=== PATIENT | female | born 1940 | race Caucasian/White ===

== ENCOUNTER 2018-03-20 13:49 | Observation (INO) | payer MEDICARE, BC ==
[2018-03-20] MEDS ORDERED: Famotidine 20 MG/2 ML SDV IVPUSH ONE (13:57)
--- NOTE | 2018-03-20 13:57 | EDM.PDOC ---
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 Medical Record [OM.PC] Urgent Peripheral IV Insertion Adult [OM.PC] Stat Resuscitation Status Stat 03/20/18 Breakfast Nothing per Oral Now Diet [DIET] - Assessment/Plan Admission H&P: Please use this note as an admission H&P Last 24 Hours: My Active Orders 03/20/18 13:57 Cardiac Monitoring [RC] . DIRECTED EKG Documentation Completion [RC] ASDIRECTED Oxygen Therapy, ED [RC] CONTINUOUS Peripheral IV Care [RC] . DIRECTED Pulse Oximetry [RC] CONTINUOUS Up With Assistance [RC] PFP Vital Signs [RC] PFP Chest 1V Frontal [CR] Stat Sodium Chloride 0.9% [Saline Flush] 10 ml FLUSH ASDIRECTED PRN Obtain Past Medical Record [OM.PC] Urgent Peripheral IV Insertion Adult [OM.PC] Stat Resuscitation Status Stat 03/20/18 Breakfast Nothing per Oral Now Diet [DIET] Assessment:: As above Plan: As above. Extensive precautions were given to the patient, who is in agreement with the treatment plan. The patient's condition is stable enough for observation status and general supervision.
[2018-03-20] MEDS: Sodium Chloride 0.9% 10 ML Syringe FLUSH PRN ×2 (14:11→14:46)
[2018-03-20] MEDS ORDERED: Lactated Ringers 1,000 ML IV ONE (14:41)
[2018-03-20 14:57] LABS: CHLORIDE,CL 103 mmol/L (98-107); SODIUM,NA 137 mmol/L (136-145)
[2018-03-20] MEDS ORDERED: Acetaminophen 325 MG Tab PO PRN ×2 (17:24→17:58)
[2018-03-20] MEDS ORDERED: Sodium Chloride 0.9% 10 ML Syringe FLUSH PRN (17:58)
[2018-03-20] MEDS ORDERED: Temazepam 15 MG Cap PO PRN (17:58)
[2018-03-20] MEDS ORDERED: Enoxaparin 40 MG/0.4 ML Syringe SUBCUT SCH (18:00)
[2018-03-20] MEDS ORDERED: Lactated Ringers 1,000 ML IV SCH (18:15)
[2018-03-20] MEDS: Fish Oil/Omega-3 Fatty Acids 1 Gm Cap PO SCH (19:24)
[2018-03-21] MEDS ORDERED: Levothyroxine 50 MCG Tab PO SCH (07:30)
[2018-03-21] MEDS ORDERED: Losartan 50 MG Tab PO SCH (08:00)
[2018-03-21] MEDS ORDERED: Aspirin 81 MG Tab.Chew PO SCH (08:00)
[2018-03-21] MEDS ORDERED: Ibuprofen 200 MG Tab PO SCH (08:00)
[2018-03-21] MEDS: Fish Oil/Omega-3 Fatty Acids 1 Gm Cap PO SCH (08:27)
--- NOTE | 2018-03-21 08:42 | PCM.DCSUM1 ---
Discharge Summary - Hospital Course HPI Initial Comments: See emergency room note/admission H&P Brief History: See emergency room note/admission H&P - Discharge Data Discharge Date: 03/21/18 Discharge Disposition: Home, Self-Care 01 Condition: Good - Discharge Diagnosis/Problem(s) (1) Syncopal episodes SNOMED Code(s): 952011323 ICD Code: R55 - SYNCOPE AND COLLAPSE Status: Acute Priority: High Current Visit: Yes Onset Date: 03/20/18 Problem Details: Negative workup for acute [place] during this hospitalization. Note significant improvement of patient's bradycardia and hypotension with IV fluids and holding of Norvasc. No chest pain or anginal type symptoms during hospitalization. Various therapeutic options were discussed with the patient, who agrees to hold her Norvasc for the time being. Note initial mild BNP elevation likely secondary to bradycardia and hypotension with no true significant clinical CHF and normal BNP this morning. The patient is already on losartan. Close follow-up by regular provider as per discharge instructions. Note history of recurrent syncopal episode as per emergency room note above, including yesterday after blood donation. Further blood donations recommended. No chest pain or other anginal type symptoms prior to arrival to the emergency room with chest pain protocol not initiated in the emergency room. IV bolus of lactated Ringer's given in the emergency room secondary to some persistent hypotension and bradycardia. Note symptoms improved , including prior to arrival to this emergency room. Various therapeutic options were discussed in the emergency room with the patient and her sister. She did agree to admission to observation with standard rule out [place] orders. Echocardiogram recommended on an outpatient basis with further cardiac workup, including possible Cardiolite stress test depending on her clinical course. Cardiology consultation when necessary. Qualifiers: Syncope type: unspecified Qualified Code(s): R55 - Syncope and collapse (2) Hypertension SNOMED Code(s): 36955174 ICD Code: I10 - ESSENTIAL (PRIMARY) HYPERTENSION Status: Acute Priority: High Current Visit: Yes Problem Details: Blood pressures improved prior to discharge although still somewhat low this morning with systolic blood pressures in the 110s. No clinical orthostasis or significant hypotension today. Note recurrent syncope as above. Pressures improved with 1 L lactated Ringer's IV bolus in the emergency room. Qualifiers: Hypertension type: essential hypertension Qualified Code(s): I10 - Essential (primary) hypertension (3) Hyperlipidemia SNOMED Code(s): 71640664 ICD Code: E78.5 - HYPERLIPIDEMIA, UNSPECIFIED Status: Chronic Priority: Medium Current Visit: Yes Problem Details: Not currently under therapy. Lipid panel this morning shows excellent HDL with no further medical therapy required unless patient does develop significant coronary artery disease. Qualifiers: Hyperlipidemia type: unspecified Qualified Code(s): E78.5 - Hyperlipidemia , unspecified (4) Osteoarthritis SNOMED Code(s): 728037083 ICD Code: M19.90 - UNSPECIFIED OSTEOARTHRITIS, UNSPECIFIED SITE Status: Chronic Priority: Medium Current Visit: Yes Problem Details: Stable by history; no recent fall or injury Qualifiers: Osteoarthritis location: multiple joints Osteoarthritis type: primary Qualified Code(s): M15.0 - Primary generalized (osteo)arthritis (5) Bradycardia SNOMED Code(s): 40147155 ICD Code: R00.1 - BRADYCARDIA, UNSPECIFIED Status: Acute Priority: High Current Visit: Yes Onset Date: 03/20/18 Problem Details: Resolved prior to admission as above. Previous Bradycardia likely secondary to medications and/ or a heart disease with bradycardia resolved at time of admission and Norvasc held during this hospitalization as above. (6) Hyperglycemia SNOMED Code(s): 97650519 ICD Code: R73.9 - HYPERGLYCEMIA, UNSPECIFIED Status: Acute Priority: High Current Visit: Yes Onset Date: 03/20/18 Problem Details: Elevated nonfasting glucose. Glycosylated hemoglobin normal this morning. (7) Hypoproteinemia SNOMED Code(s): 2351544 ICD Code: E77.8 - OTHER DISORDERS OF GLYCOPROTEIN METABOLISM Status: Acute Priority: Medium Current Visit: Yes Onset Date: 03/20/18 Problem Details: Albumin was normal on admission, however some hypoalbuminemia today. High-protein diet for now. Continue to observe closely by regular provider. (8) Hypothyroidism (acquired) SNOMED Code(s): 874641935 ICD Code: E03.9 - HYPOTHYROIDISM, UNSPECIFIED Status: Acute Priority: High Current Visit: Yes Onset Date: 03/20/18 Problem Details: Apparent previous problems with borderline hypothyroidism. Initiate Synthroid therapy with recommended TSH in 4 weeks. (9) Lactic acid increased SNOMED Code(s): 13080909 ICD Code: E87.2 - ACIDOSIS Status: Acute Priority: High Current Visit: Yes Onset Date: 03/20/18 Problem Details: Mildly elevated lactic acid level on admission with normal subsequent evaluations.. No evidence of fever, leukocytosis, or clinical sepsis. Lactic acid was repeated with next set of cardiac enzymes and this morning. (10) Right bundle branch block (RBBB) SNOMED Code(s): 15660154 ICD Code: I45.10 - UNSPECIFIED RIGHT BUNDLE-BRANCH BLOCK Status: Acute Priority: Medium Current Visit: Yes Onset Date: 03/20/18 Problem Details: Borderline incomplete right bundle branch block. Cardiac workup as above. - Patient Summary/Data Operative Procedure(s) Performed: None Complications: None Consults: None Labs Pending at D/C: None Recommended Follow-up Testing/Procedures: As per discharge instructions Planned Operative Procedure(s) after DC: None Hospital Course: The patient was admitted to observation status on telemetry with negative workup for acute [place]. Otherwise aggressive treatment both in the emergency room and during this hospitalization as above. No complications during this hospitalization. - Patient Instructions Diet: Heart Healthy Diet (Diverticulosis, high protein) Activity: No Strenuous Activities (50% maximum exercise restriction with strict fall and injury precautions until otherwise directed by regular provider) Driving: May Drive Today Showering/Bathing: May Shower Notify Provider of: Increased Pain, Nausea and/or Vomiting Other/Special Instructions: 1. Follow-up with your regular provider in one week for reevaluation and discussion of this hospitalization, including Norvasc being held for the time being. 2. Continue to observe your blood pressures and pulses closely through your regular provider. 3. Discuss recommended echocardiogram and/or additional Cardiolite stress test with your regular provider at follow-up secondary to your history of recurrent syncope. 4. TSH should be repeated in 4 weeks secondary to newly initiated Synthroid for your hypothyroidism. 5. Immediately after this visit verify that your cellular telephone's voicemail has been activated and is empty. Also verify that your home telephone's answering machine is operating properly and has space to receive messages. Note that it is sometimes necessary for us to be able to contact you at a later date to discuss your medical care. - Discharge Plan Prescriptions/Med Rec: Levothyroxine [Synthroid] 50 mcg PO ACBREAKFAST #60 tablet Home Medications: Home Meds Acetaminophen [Tylenol] 325 mg PO Q4H PRN 03/20/18 [History] Alendronate Sodium [Fosamax] 70 mg PO Q7D 03/20/18 [History] Aspirin 81 mg PO DAILY 03/20/18 [History] Biotin 1 mg PO DAILY 03/20/18 [History] Cholecalciferol (Vitamin D3) [Vitamin D3] 2,000 unit PO DAILY 03/20/18 [History] Fish Oil/[place]-3 Fatty Acids [Fish Oil 1,000 MG] 2 gm PO BID 03/20/18 [History] Losartan [Cozaar] 25 mg PO DAILY 03/20/18 [History] Multivit-Min/FA/Lycopene/Lut [Senior Tabs] 1 each PO DAILY 03/20/18 [History] Acetaminophen [Tylenol] 650 mg PO Q4H PRN tablet 03/21/18 [Rx] Calcium Carbonate/Vitamin D3 [Calcium 500 mg Chewable Tablet] 1 each PO QPM #0 03/21/18 [Rx] Levothyroxine [Synthroid] 50 mcg PO ACBREAKFAST #60 tablet 03/21/18 [Rx] Patient Handouts: Hypothyroidism Forms: ED Department Discharge Referrals: PCP,Unknown [Primary Care Provider] - - Discharge Summary/Plan Comment DC Time >30 min.: Yes (Coordination of care ) Discharge Summary/Plan Comment: As above. Extensive precautions were given to the patient, who is in agreement with the treatment plan. See Patient Instructions for further treatment and plan. - General Info Date of Service: 03/21/18 Admission Dx/Problem (Free Text: 1. Syncope 2. Bradycardia 3. Hypertension Functional Status: Reports: Pain Controlled, Tolerating Diet, Ambulating, Urinating, New Symptoms. Denies: Incentive Spirometry Numeric/FACES Score: 0 - Review of Systems General: Reports: No Symptoms. Denies: Fever, Weakness, Fatigue, Malaise, Chills, Night Sweats, Appetite (Appetite good) HEENT: Reports: No Symptoms. Denies: Dysphasia, Ear Pain, Eye Pain, Headaches, Post Nasal Drip, Sinus Congestion, Sore Throat, Rhinitis, Visual Changes Pulmonary: Reports: No Symptoms. Denies: Shortness of Breath, Pleuritic Chest Pain, Sputum, Wheezing Cardiovascular: Reports: No Symptoms. Denies: Chest Pain, Palpitations, Dyspnea on Exertion, Orthopnea, PND, Edema, Lightheadedness, Other Gastrointestinal: Reports: No Symptoms, Other (Normal bowel movement yesterday evening). Denies: Abdominal Pain, Constipation, Decreased Appetite, Diarrhea, Difficulty Swallowing, Flatus, Hematochezia, Melena, Nausea, Vomiting Genitourinary: Reports: No Symptoms. Denies: Dysuria, Frequency, Burning, Pain , Urgency, Incontinence, Hematuria, Retention, Flank Pain Musculoskeletal: Reports: No Symptoms. Denies: Neck Pain, Shoulder Pain, Arm Pain, Back Pain, Leg Pain Skin: Reports: No Symptoms. Denies: Diaphoresis Neurological: Reports: No Symptoms. Denies: Confusion, Dizziness, Headache, Numbness, Paresthesia, Tingling, Weakness Psychiatric: Reports: No Symptoms. Denies: Confusion, Depression, Anxiety, Agitation, Cravings - Patient Data Vitals - Most Recent: Last Vital Signs Temp 36.8 C 03/21/18 04:00 Pulse 78 03/21/18 04:00 Resp 18 03/21/18 04:00 BP 111/64 03/21/18 08:25 Pulse Ox 97 03/21/18 04:00 Vital Signs (72 hours) 03/20/18 03/20/18 03/20/18 13:50 14:00 14:15 Temperature [ Oral] Temperature [ Temporal] Pulse, 55 L 67 55 L Peripheral [ Pulse Oximetry] Respiratory 12 12 14 Rate Blood Pressure Blood Pressure 121/50 L 98/53 L 118/56 L [Right Upper Arm] O2 Sat by Pulse 100 100 100 Oximetry 03/20/18 03/20/18 03/20/18 14:30 14:45 15:05 Temperature [ 36.5 C Oral] Temperature [ Temporal] Pulse, 59 L 67 67 Peripheral [ Pulse Oximetry] Respiratory 15 15 16 Rate Blood Pressure Blood Pressure 99/51 L 99/53 L 120/55 L [Right Upper Arm] O2 Sat by Pulse 2 L 100 100 Oximetry 03/20/18 03/20/18 03/20/18 15:20 15:35 16:00 Temperature [ Oral] Temperature [ Temporal] Pulse, 69 70 Peripheral [ Pulse Oximetry] Respiratory 15 16 Rate Blood Pressure Blood Pressure 130/60 125/70 98/78 [Right Upper Arm] O2 Sat by Pulse 100 100 Oximetry 03/20/18 03/20/18 03/20/18 17:59 19:59 21:00 Temperature [ Oral] Temperature [ 36.2 C 36 C 36.2 C Temporal] Pulse, 65 79 65 Peripheral [ Pulse Oximetry] Respiratory Rate Blood Pressure Blood Pressure 105/74 109/55 L 105/74 [Right Upper Arm] O2 Sat by Pulse 99 99 99 Oximetry 03/21/18 03/21/18 03/21/18 00:00 04:00 08:00 Temperature [ 36.6 C 36.8 C 36.1 C Oral] Temperature [ Temporal] Pulse, 68 78 77 Peripheral [ Pulse Oximetry] Respiratory 18 18 17 Rate Blood Pressure Blood Pressure 100/55 L 115/69 111/64 [Right Upper Arm] O2 Sat by Pulse 100 97 98 Oximetry 03/21/18 08:25 Temperature [ Oral] Temperature [ Temporal] Pulse, Peripheral [ Pulse Oximetry] Respiratory Rate Blood Pressure 111/64 Blood Pressure [Right Upper Arm] O2 Sat by Pulse Oximetry Weight - Most Recent: 57.606 kg I&O - Last 24 hours: Intake & Output 03/20/18 03/21/18 03/21/18 22:59 06:59 14:59 Intake Total 240 Output Total 1200 Balance -1200 240 Imaging Impressions - Last 24 hrs: 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 No ectopy or arrhythmia. Chest x-ray, portable, on 03/20/18 showed no evidence of cardiomegaly, CHF, COPD, pulmonary infiltrates, pneumothorax, etc. Lab Results - Last 24 hrs: Laboratory Results - last 24 hr 03/20/18 03/20/18 03/20/18 Range/Units 14:10 14:10 14:10 WBC 7.6 (4.0-10.2) K/uL RBC 4.22 (3.77-5.09) M/uL Hgb 13.0 (11.7-15.5) g/dL Hct 37.6 (34.0-46.0) % MCV 89.1 (84.0-98.0) fL MCH 30.8 (28.2-33.3) pg MCHC 34.6 (31.7-36.0) g/dL RDW 13.1 (11.2-14.1) % Plt Count 214 (150-350) K/uL Neut % (Auto) 69.6 (45.0-80.0) % Lymph % (Auto) 20.9 (10.0-50.0) % [place] % (Auto) 7.8 (2.0-14.0) % Eos % (Auto) 1.2 (0.0-5.0) % Baso % (Auto) 0.5 (0.0-2.0) % Neut # (Auto) 5.25 (1.40-7.00) K/uL Lymph # (Auto) 1.58 (0.50-3.50) K/uL [place] # (Auto) 0.59 (0.00-1.00) K/uL Eos # (Auto) 0.09 (0.00-0.50) K/uL Baso # (Auto) 0.04 (0.00-0.20) K/uL PT 11.1 (9.8-11.7) SEC INR 1.0 APTT 23.3 (22.1-29.8) SEC D-Dimer, Quantitative < 100 (0-400) ng/mL Sodium (136-145) mmol/L Potassium (3.5-5.1) mmol/L Chloride (98-107) mmol/L Carbon Dioxide (21.0-32.0) mmol/L BUN (7-18) mg/dL Creatinine (0.51-1.17) mg/dL Est Cr Clr Drug Dosing Estimated GFR (MDRD) mL/min Glucose (74-106) mg/dL Hemoglobin A1c (4.3-5.7) % Lactic Acid (0.4-2.0) mmol/L Uric Acid (2.6-7.2) mg/dL Calcium (8.5-10.1) mg/dL Magnesium (1.8-2.4) mg/dL Total Bilirubin (0.2-1.0) mg/dL AST (15-37) U/L ALT (12-78) U/L Alkaline Phosphatase (46-116) IU/L Creatine Kinase (26-308) U/L Creatine Kinase Index (0.0-2.5) % CK-MB (CK-2) (0.00-3.60) ng/mL Troponin I (0.000-0.056) ng/mL NT-Pro-B Natriuret Pep (0-125) pg/mL Total Protein (6.4-8.2) g/dL Albumin (3.4-5.0) g/dL TSH, Ultra Sensitive (0.358-3.740) mIU/mL 03/20/18 03/20/18 03/20/18 Range/Units 14:10 14:10 21:00 WBC (4.0-10.2) K/uL RBC (3.77-5.09) M/uL Hgb (11.7-15.5) g/dL Hct (34.0-46.0) % MCV (84.0-98.0) fL MCH (28.2-33.3) pg MCHC (31.7-36.0) g/dL RDW (11.2-14.1) % Plt Count (150-350) K/uL Neut % (Auto) (45.0-80.0) % Lymph % (Auto) (10.0-50.0) % [place] % (Auto) (2.0-14.0) % Eos % (Auto) (0.0-5.0) % Baso % (Auto) (0.0-2.0) % Neut # (Auto) (1.40-7.00) K/uL Lymph # (Auto) (0.50-3.50) K/uL [place] # (Auto) (0.00-1.00) K/uL Eos # (Auto) (0.00-0.50) K/uL Baso # (Auto) (0.00-0.20) K/uL PT (9.8-11.7) SEC INR APTT (22.1-29.8) SEC D-Dimer, Quantitative (0-400) ng/mL Sodium 137 (136-145) mmol/L Potassium 3.6 (3.5-5.1) mmol/L Chloride 103 (98-107) mmol/L Carbon Dioxide 24.6 (21.0-32.0) mmol/L BUN 27 H (7-18) mg/dL Creatinine 1.00 (0.51-1.17) mg/dL Est Cr Clr Drug Dosing TNP Estimated GFR (MDRD) 53 mL/min Glucose 172 H (74-106) mg/dL Hemoglobin A1c (4.3-5.7) % Lactic Acid 2.6 H (0.4-2.0) mmol/L Uric Acid 4.2 (2.6-7.2) mg/dL Calcium 9.5 (8.5-10.1) mg/dL Magnesium 2.2 (1.8-2.4) mg/dL Total Bilirubin 0.2 (0.2-1.0) mg/dL AST 20 (15-37) U/L ALT 22 (12-78) U/L Alkaline Phosphatase 39 L (46-116) IU/L Creatine Kinase 97 93 (26-308) U/L Creatine Kinase Index 1.8 2.0 (0.0-2.5) % CK-MB (CK-2) 1.70 1.90 (0.00-3.60) ng/mL Troponin I 0.000 0.000 (0.000-0.056) ng/mL NT-Pro-B Natriuret Pep 140 H (0-125) pg/mL Total Protein 6.2 L (6.4-8.2) g/dL Albumin 3.4 (3.4-5.0) g/dL TSH, Ultra Sensitive 8.077 H (0.358-3.740) mIU/mL 03/20/18 03/21/18 03/21/18 Range/Units 21:00 06:50 06:50 WBC 6.2 (4.0-10.2) K/uL RBC 4.03 (3.77-5.09) M/uL Hgb 12.3 (11.7-15.5) g/dL Hct 35.8 (34.0-46.0) % MCV 88.8 (84.0-98.0) fL MCH 30.5 (28.2-33.3) pg MCHC 34.4 (31.7-36.0) g/dL RDW 12.9 (11.2-14.1) % Plt Count 219 (150-350) K/uL Neut % (Auto) 60.4 (45.0-80.0) % Lymph % (Auto) 30.1 (10.0-50.0) % [place] % (Auto) 7.6 (2.0-14.0) % Eos % (Auto) 1.1 (0.0-5.0) % Baso % (Auto) 0.8 (0.0-2.0) % Neut # (Auto) 3.75 (1.40-7.00) K/uL Lymph # (Auto) 1.87 (0.50-3.50) K/uL [place] # (Auto) 0.47 (0.00-1.00) K/uL Eos # (Auto) 0.07 (0.00-0.50) K/uL Baso # (Auto) 0.05 (0.00-0.20) K/uL PT (9.8-11.7) SEC INR APTT (22.1-29.8) SEC D-Dimer, Quantitative (0-400) ng/mL Sodium (136-145) mmol/L Potassium (3.5-5.1) mmol/L Chloride (98-107) mmol/L Carbon Dioxide (21.0-32.0) mmol/L BUN (7-18) mg/dL Creatinine (0.51-1.17) mg/dL Est Cr Clr Drug Dosing Estimated GFR (MDRD) mL/min Glucose (74-106) mg/dL Hemoglobin A1c 5.5 (4.3-5.7) % Lactic Acid 0.8 (0.4-2.0) mmol/L Uric Acid (2.6-7.2) mg/dL Calcium (8.5-10.1) mg/dL Magnesium (1.8-2.4) mg/dL Total Bilirubin (0.2-1.0) mg/dL AST (15-37) U/L ALT (12-78) U/L Alkaline Phosphatase (46-116) IU/L Creatine Kinase (26-308) U/L Creatine Kinase Index (0.0-2.5) % CK-MB (CK-2) (0.00-3.60) ng/mL Troponin I (0.000-0.056) ng/mL NT-Pro-B Natriuret Pep (0-125) pg/mL Total Protein (6.4-8.2) g/dL Albumin (3.4-5.0) g/dL TSH, Ultra Sensitive (0.358-3.740) mIU/mL Laboratory Tests 03/20/18 03/20/18 03/20/18 Range/Units 14:10 14:10 14:10 WBC 7.6 (4.0-10.2) K/uL RBC 4.22 (3.77-5.09) M/uL Hgb 13.0 (11.7-15.5) g/dL Hct 37.6 (34.0-46.0) % MCV 89.1 (84.0-98.0) fL MCH 30.8 (28.2-33.3) pg MCHC 34.6 (31.7-36.0) g/dL RDW 13.1 (11.2-14.1) % Plt Count 214 (150-350) K/uL Neut % (Auto) 69.6 (45.0-80.0) % Lymph % (Auto) 20.9 (10.0-50.0) % [place] % (Auto) 7.8 (2.0-14.0) % Eos % (Auto) 1.2 (0.0-5.0) % Baso % (Auto) 0.5 (0.0-2.0) % Neut # (Auto) 5.25 (1.40-7.00) K/uL Lymph # (Auto) 1.58 (0.50-3.50) K/uL [place] # (Auto) 0.59 (0.00-1.00) K/uL Eos # (Auto) 0.09 (0.00-0.50) K/uL Baso # (Auto) 0.04 (0.00-0.20) K/uL PT 11.1 (9.8-11.7) SEC INR 1.0 APTT 23.3 (22.1-29.8) SEC D-Dimer, Quantitative < 100 (0-400) ng/mL Sodium (136-145) mmol/L Potassium (3.5-5.1) mmol/L Chloride (98-107) mmol/L Carbon Dioxide (21.0-32.0) mmol/L BUN (7-18) mg/dL Creatinine (0.51-1.17) mg/dL Est Cr Clr Drug Dosing Estimated GFR (MDRD) mL/min Glucose (74-106) mg/dL Hemoglobin A1c (4.3-5.7) % Lactic Acid (0.4-2.0) mmol/L Uric Acid (2.6-7.2) mg/dL Calcium (8.5-10.1) mg/dL Magnesium (1.8-2.4) mg/dL Total Bilirubin (0.2-1.0) mg/dL AST (15-37) U/L ALT (12-78) U/L Alkaline Phosphatase (46-116) IU/L Creatine Kinase (26-308) U/L Creatine Kinase Index (0.0-2.5) % CK-MB (CK-2) (0.00-3.60) ng/mL Troponin I (0.000-0.056) ng/mL NT-Pro-B Natriuret Pep (0-125) pg/mL Total Protein (6.4-8.2) g/dL Albumin (3.4-5.0) g/dL Triglycerides (30-150) mg/dL Cholesterol (100-200) mg/dL LDL Cholesterol, Calc (0-100) mg/dL HDL Cholesterol (40-60) mg/dL TSH, Ultra Sensitive (0.358-3.740) mIU/mL 03/20/18 03/20/18 03/20/18 Range/Units 14:10 14:10 21:00 WBC (4.0-10.2) K/uL RBC (3.77-5.09) M/uL Hgb (11.7-15.5) g/dL Hct (34.0-46.0) % MCV (84.0-98.0) fL MCH (28.2-33.3) pg MCHC (31.7-36.0) g/dL RDW (11.2-14.1) % Plt Count (150-350) K/uL Neut % (Auto) (45.0-80.0) % Lymph % (Auto) (10.0-50.0) % [place] % (Auto) (2.0-14.0) % Eos % (Auto) (0.0-5.0) % Baso % (Auto) (0.0-2.0) % Neut # (Auto) (1.40-7.00) K/uL Lymph # (Auto) (0.50-3.50) K/uL [place] # (Auto) (0.00-1.00) K/uL Eos # (Auto) (0.00-0.50) K/uL Baso # (Auto) (0.00-0.20) K/uL PT (9.8-11.7) SEC INR APTT (22.1-29.8) SEC D-Dimer, Quantitative (0-400) ng/mL Sodium 137 (136-145) mmol/L Potassium 3.6 (3.5-5.1) mmol/L Chloride 103 (98-107) mmol/L Carbon Dioxide 24.6 (21.0-32.0) mmol/L BUN 27 H (7-18) mg/dL Creatinine 1.00 (0.51-1.17) mg/dL Est Cr Clr Drug Dosing TNP Estimated GFR (MDRD) 53 mL/min Glucose 172 H (74-106) mg/dL Hemoglobin A1c (4.3-5.7) % Lactic Acid 2.6 H (0.4-2.0) mmol/L Uric Acid 4.2 (2.6-7.2) mg/dL Calcium 9.5 (8.5-10.1) mg/dL Magnesium 2.2 (1.8-2.4) mg/dL Total Bilirubin 0.2 (0.2-1.0) mg/dL AST 20 (15-37) U/L ALT 22 (12-78) U/L Alkaline Phosphatase 39 L (46-116) IU/L Creatine Kinase 97 93 (26-308) U/L Creatine Kinase Index 1.8 2.0 (0.0-2.5) % CK-MB (CK-2) 1.70 1.90 (0.00-3.60) ng/mL Troponin I 0.000 0.000 (0.000-0.056) ng/mL NT-Pro-B Natriuret Pep 140 H (0-125) pg/mL Total Protein 6.2 L (6.4-8.2) g/dL Albumin 3.4 (3.4-5.0) g/dL Triglycerides (30-150) mg/dL Cholesterol (100-200) mg/dL LDL Cholesterol, Calc (0-100) mg/dL HDL Cholesterol (40-60) mg/dL TSH, Ultra Sensitive 8.077 H (0.358-3.740) mIU/mL 03/20/18 03/21/18 03/21/18 Range/Units 21:00 06:50 06:50 WBC 6.2 (4.0-10.2) K/uL RBC 4.03 (3.77-5.09) M/uL Hgb 12.3 (11.7-15.5) g/dL Hct 35.8 (34.0-46.0) % MCV 88.8 (84.0-98.0) fL MCH 30.5 (28.2-33.3) pg MCHC 34.4 (31.7-36.0) g/dL RDW 12.9 (11.2-14.1) % Plt Count 219 (150-350) K/uL Neut % (Auto) 60.4 (45.0-80.0) % Lymph % (Auto) 30.1 (10.0-50.0) % [place] % (Auto) 7.6 (2.0-14.0) % Eos % (Auto) 1.1 (0.0-5.0) % Baso % (Auto) 0.8 (0.0-2.0) % Neut # (Auto) 3.75 (1.40-7.00) K/uL Lymph # (Auto) 1.87 (0.50-3.50) K/uL [place] # (Auto) 0.47 (0.00-1.00) K/uL Eos # (Auto) 0.07 (0.00-0.50) K/uL Baso # (Auto) 0.05 (0.00-0.20) K/uL PT (9.8-11.7) SEC INR APTT (22.1-29.8) SEC D-Dimer, Quantitative (0-400) ng/mL Sodium 141 (136-145) mmol/L Potassium 4.2 (3.5-5.1) mmol/L Chloride 108 H (98-107) mmol/L Carbon Dioxide 26.2 (21.0-32.0) mmol/L BUN 16 (7-18) mg/dL Creatinine 0.88 (0.51-1.17) mg/dL Est Cr Clr Drug Dosing 37.23 Estimated GFR (MDRD) > 60 mL/min Glucose 102 (74-106) mg/dL Hemoglobin A1c (4.3-5.7) % Lactic Acid 0.8 (0.4-2.0) mmol/L Uric Acid (2.6-7.2) mg/dL Calcium 8.6 (8.5-10.1) mg/dL Magnesium (1.8-2.4) mg/dL Total Bilirubin 0.3 (0.2-1.0) mg/dL AST 15 (15-37) U/L ALT 22 (12-78) U/L Alkaline Phosphatase 37 L (46-116) IU/L Creatine Kinase 84 (26-308) U/L Creatine Kinase Index 1.8 (0.0-2.5) % CK-MB (CK-2) 1.50 (0.00-3.60) ng/mL Troponin I 0.000 (0.000-0.056) ng/mL NT-Pro-B Natriuret Pep 88 (0-125) pg/mL Total Protein 6.1 L (6.4-8.2) g/dL Albumin 3.2 L (3.4-5.0) g/dL Triglycerides 65 (30-150) mg/dL Cholesterol 211 H (100-200) mg/dL LDL Cholesterol, Calc 95 (0-100) mg/dL HDL Cholesterol 103 H (40-60) mg/dL TSH, Ultra Sensitive (0.358-3.740) mIU/mL 03/21/18 03/21/18 Range/Units 06:50 06:50 WBC (4.0-10.2) K/uL RBC (3.77-5.09) M/uL Hgb (11.7-15.5) g/dL Hct (34.0-46.0) % MCV (84.0-98.0) fL MCH (28.2-33.3) pg MCHC (31.7-36.0) g/dL RDW (11.2-14.1) % Plt Count (150-350) K/uL Neut % (Auto) (45.0-80.0) % Lymph % (Auto) (10.0-50.0) % Bullitt % (Auto) (2.0-14.0) % Eos % (Auto) (0.0-5.0) % Baso % (Auto) (0.0-2.0) % Neut # (Auto) (1.40-7.00) K/uL Lymph # (Auto) (0.50-3.50) K/uL Bullitt # (Auto) (0.00-1.00) K/uL Eos # (Auto) (0.00-0.50) K/uL Baso # (Auto) (0.00-0.20) K/uL PT (9.8-11.7) SEC INR APTT (22.1-29.8) SEC D-Dimer, Quantitative (0-400) ng/mL Sodium (136-145) mmol/L Potassium (3.5-5.1) mmol/L Chloride (98-107) mmol/L Carbon Dioxide (21.0-32.0) mmol/L BUN (7-18) mg/dL Creatinine (0.51-1.17) mg/dL Est Cr Clr Drug Dosing Estimated GFR (MDRD) mL/min Glucose (74-106) mg/dL Hemoglobin A1c 5.5 (4.3-5.7) % Lactic Acid 1.0 (0.4-2.0) mmol/L Uric Acid (2.6-7.2) mg/dL Calcium (8.5-10.1) mg/dL Magnesium (1.8-2.4) mg/dL Total Bilirubin (0.2-1.0) mg/dL AST (15-37) U/L ALT (12-78) U/L Alkaline Phosphatase (46-116) IU/L Creatine Kinase (26-308) U/L Creatine Kinase Index (0.0-2.5) % CK-MB (CK-2) (0.00-3.60) ng/mL Troponin I (0.000-0.056) ng/mL NT-Pro-B Natriuret Pep (0-125) pg/mL Total Protein (6.4-8.2) g/dL Albumin (3.4-5.0) g/dL Triglycerides (30-150) mg/dL Cholesterol (100-200) mg/dL LDL Cholesterol, Calc (0-100) mg/dL HDL Cholesterol (40-60) mg/dL TSH, Ultra Sensitive (0.358-3.740) mIU/mL [facility] Results - Last 24 hrs: None Med Orders - Current: Current Medications Acetaminophen (Tylenol) 650 mg PO Q4H PRN PRN Reason: Pain Aspirin (Aspirin) 81 mg PO DAILY [facility] Last Admin: 03/21/18 08:23 Dose: 81 mg Enoxaparin Sodium (Lovenox) 40 mg SUBCUT Q24H [facility] Last Admin: 03/20/18 19:24 Dose: 40 mg Fish Oil (Fish Oil) 2 gm PO BID [facility] Last Admin: 03/21/18 08:27 Dose: 2 gm Lactated Ringer's (Ringers, Lactated) 1,000 mls @ 80 mls/hr IV ASDIRECTED [facility] Ibuprofen (Motrin) 200 mg PO DAILY [facility] Last Admin: 03/21/18 08:23 Dose: 200 mg Levothyroxine Sodium (Synthroid) 50 mcg PO ACBREAKFAST [facility] Last Admin: 03/21/18 08:24 Dose: 50 mcg Losartan Potassium (Cozaar) 25 mg PO DAILY [facility] Last Admin: 03/21/18 08:25 Dose: 25 mg Sodium Chloride (Saline Flush) 10 ml FLUSH ASDIRECTED PRN PRN Reason: Keep Vein Open Last Admin: 03/20/18 14:46 Dose: 10 ml Sodium Chloride (Saline Flush) 10 ml FLUSH Q12HR PRN PRN Reason: Keep Vein Open Temazepam (Restoril) 15 mg PO BEDTIME PRN PRN Reason: Insomnia Discontinued Medications Acetaminophen (Tylenol) 325 mg PO Q4H PRN PRN Reason: Pain Famotidine (Pepcid) 40 mg IVPUSH ONETIME ONE Stop: 03/20/18 13:58 Last Admin: 03/20/18 14:10 Dose: 40 mg Lactated Ringer's (Ringers, Lactated) 1,000 mls @ 999 mls/hr IV .BOLUS ONE Stop: 03/20/18 15:41 Last Admin: 03/20/18 14:46 Dose: 999 mls/hr - Exam Quality Assessment: Reports: Supplemental Oxygen, DVT Prophylaxis (Lovenox). Denies: Central Line/PICC, Urine Catheter, Skin Breakdown, Restraints General: Reports: Alert, Oriented, Cooperative, No Acute Distress HEENT: Reports: Pupils Equal, Pupils Reactive, EOMI, Mucous Membr. Moist/[place] Neck: Reports: Supple, Trachea Midline, No JVD, No Thyromegaly, Carotid Bruit ( Stable mild bilateral carotid bruits). Denies: Lymphadenopathy Lungs: Reports: Clear to Auscultation, Normal Respiratory Effort. Denies: Rub Cardiovascular: Reports: Regular Rate, Regular Rhythm, No Murmurs. Denies: Gallops, Rubs GI/Abdominal Exam: Normal Bowel Sounds, Soft, Non-Tender, No Organomegaly, No Distention, No Abnormal Bruit, No Mass. No: Guarding (Female) Exam: Deferred Rectal (Female) Exam: Deferred Back Exam: Reports: Normal Inspection, Full Range of Motion. Denies: CVA Tenderness (L), CVA Tenderness (R), Muscle Spasm Extremities: Normal Inspection, Normal Range of Motion, Non-Tender, No Pedal Edema, Normal Capillary Refill. No: Dre's Sign Skin: Reports: Warm, Dry, Intact, Ecchymosis (Minimal at Lovenox site) Neurological: Reports: No New Focal Deficit, Other (No clinical orthostasis) Psy/Mental Status: Reports: Alert, Normal Affect, Normal Mood. Denies: Agitated , Withdrawal Symptoms EKG INTERPRETATION EKG Date: 03/21/18 Time: 08:03 Rhythm: NSR (With resolved bradycardia since last EKG) Rate (Beats/Min): 66 Kiefer: Normal P-Wave: Present (Diffuse biphasic P waves with poor R-wave progression in the anterior leads) QRS: Wide (QRS interval of 0.10 seconds representing repolarization changes versus beginning incomplete right bundle branch block with T-wave inversion in lead V1) ST-T: Normal QT: Normal MD/PQ Interval: 0.17 seconds Comparison: Change From Previous EKG (As above since 03/20/18) EKG Interpretation Comments: 1. No acute ischemic changes 2. Sinus bradycardia-resolved 3. Incomplete right bundle branch block versus repolarization changes 4. Probable left atrial enlargement
[2018-03-21 08:45] LABS: CHLORIDE,CL 108 mmol/L (98-107); SODIUM,NA 141 mmol/L (136-145)
== END 2018-03-21 11:20 | disposition home or self-care (01) ==
LOC: LL.ED 13:49 → LL.MS 16:30
PROVIDERS: ADMIT Family Medicine; ATTEND Family Medicine
DX: R55 Syncope and collapse (principal); I10 Essential (primary) hypertension; E78.5 Hyperlipidemia, unspecified; M15.0 Primary generalized (osteo)arthritis; R00.1 Bradycardia, unspecified; R73.9 Hyperglycemia, unspecified; E77.8 Other disorders of glycoprotein metabolism; E03.9 Hypothyroidism, unspecified; E87.2 Acidosis; I45.10 Unspecified right bundle-branch block; K21.9 Gastro-esophageal reflux disease without esophagitis; M81.0 Age-related osteoporosis without current pathological fracture; Z79.82 Long term (current) use of aspirin; Z79.899 Other long term (current) drug therapy
CPT/HCPCS: 36415; 71045; 80053; 80061; 82550; 82553; 83036; 83605; 83735; 83880; 84443; 84484; 84550; 85025; 85379; 85610; 85730; 93005; 96361; 96372; 96374; 99285; A9270-GY; G0378; J1650; J7050; J7120; S0028